=== PATIENT | male | born 1975 | race Caucasian/White ===

== ENCOUNTER 2023-11-24 01:44 | Emergency (ER) | payer OTHER, SELFPAY ==
[2023-11-24 01:48] VITALS: BP 166/99; PULSE 100; RESP 18; TEMP 36.4; O2SAT 95; BMI 37.3
--- NOTE | 2023-11-24 02:00 | ED_ITS ---
HPI - Wound/Laceration General Chief Complaint: Wound/Laceration Stated Complaint: LACERATION Time Seen by Provider: 11/24/23 01:57 Source: patient Mode of arrival: walk-in History of Present Illness HPI narrative: patient was shaving his pubic area and mistakenly cut the top of his penis. Bleeding for about 30 minutes. Denies other injury or complaint Related Data Home Medications ?Medication ?Instructions ?Recorded ?Confirmed amlodipine 5 mg-olmesartan 20 mg tab 11/24/23 tablet empagliflozin 25 mg tablet mg 11/24/23 (Jardiance) rosuvastatin 20 mg tablet mg 11/24/23 Allergies Allergy/AdvReac Type Severity Reaction Status Date / Time No Known Drug Allergies Allergy Verified 11/24/23 01:51 Review of Systems ROS Status of ROS 10 or more systems reviewed and unremark able except as noted in history and below Exam Constitutional Vital Signs, click to edit/add: Last Vital Signs Temp 97.5 F L 11/24/23 01:48 Pulse 100 H 11/24/23 01:48 Resp 18 11/24/23 01:48 BP 166/99 H 11/24/23 01:48 Pulse Ox 95 11/24/23 01:48 O2 Del Method Room Air 11/24/23 01:48 Common normals: no apparent distress, oriented x3, healthy appearing, alert and well nourished [facility] Common normals: normocephalic and head/scalp atraumatic Respiratory Common normals: normal respiratory effort, no retractions and no use of accessory muscles GI Common normals: Normal to inspection, nondistended, normoactive bowel sounds present, soft to palpation and non-tender Other: superficial lac proximal dorsum phallus. 1.5cm. Extremity Common normals: normal to inspection and full ROM Neuro Common normals: oriented x3, CN's II-XII intact bilaterally, moves all extremities and no focal motor deficits Psych Appearance: grossly normal Course Vital Signs Vital signs: Vital Signs Temperature 97.5 F L 11/24/23 01:48 Pulse Rate 100 H 11/24/23 01:48 Respiratory Rate 18 11/24/23 01:48 Blood Pressure 166/99 H 11/24/23 01:48 Pulse Oximetry 95 11/24/23 01:48 Oxygen Delivery Method Room Air 11/24/23 01:48 Temperature 97.5 F L 11/24/23 01:48 Pulse Rate 100 H 11/24/23 01:48 Respiratory Rate 18 11/24/23 01:48 Blood Pressure 166/99 H 11/24/23 01:48 Pulse Oximetry 95 11/24/23 01:48 Oxygen Delivery Method Room Air 11/24/23 01:48 MDM - Wound/Laceration MDM Narrative Medical decision making narrative: presents with superficial lac dorsum of phallus. mistakenly cut while shaving his pubic area. lac repaired without incident. Patient UTD with tetanus. Discharged home in improved condition Discharge Plan Discharge Stand Alone Forms: Portal Instructions Chief Complaint: Wound/Laceration Clinical Impression: Laceration of genitalia Patient Disposition: Home, Self-Care Prescriptions / Home Meds: No Action rosuvastatin 20 mg tablet amlodipine-olmesartan 5-20 mg tablet Jardiance 25 mg tablet Print Language: [place] Instructions: Laceration (ED) Additional Instructions: follow up with your doctor for recheck in 2-3 days Referrals: Physician,Non-Staff, MD [Primary Care Provider] - 1 week Procedures ED Procedure Instructions Procedures Procedures: lac 1.5cm proximal dorum of phallus 1% lido without epi. site cleaned with betadine and rinsed with saline. Closed with # 3 5.0 Vicryl stitches
[2023-11-24] MEDS: LIDOCAINE HCL 1% 100 MG/10 ML MDV INJ (02:55)
[2023-11-24] MEDS: AMOXICILLIN/POTASSIUM CLAV 1 TAB TABLET PO (02:55)
[2023-11-24] MEDS: BACITRACIN OINTMENT 28.4 GM TUBE 1 APPLIC TOPICAL (02:56)
== END 2023-11-24 03:11 | disposition home or self-care (01) ==
PROVIDERS: Emergency Provider Internal Medicine
DX: S31.21XA Laceration without foreign body of penis, initial encounter (principal); W26.8XXA Contact with other sharp object(s), not elsewhere classified, initial encounter
CPT/HCPCS: 12001; 99283